=== PATIENT | female | born 1945 | race Caucasian/White ===

== ENCOUNTER 2017-11-02 13:07 | Outpatient (CLI) | payer MEDICARE, BC ==
[2017-11-02 14:09] LABS: Hematocrit 35.9 % (36.0-47.0)
--- NOTE | 2017-11-02 16:22 | ULT ---
THYROID ULTRASOUND: Date: 11-02-17 Comparison: 10-03-16 History: Evaluate thyroid nodule, prior history of right sided thyroidectomy. Technique: Multiplanar grayscale sonographic imaging of the thyroid gland obtained. 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 The left thyroid lobe measures 1.9 x 4.5 x 1.6 cm. There is a hypoechoic solid nodule within the inferior aspect of the left lobe of the thyroid gland m easuring 1.4 x 1.2 x 1.2 cm, grossly unchanged when compared to the 10-03-16 exam. IMPRESSION: 1. Stable solid inferior left thyroid nodule. POS: SYBIL
== END 2017-11-02 13:08 | disposition home or self-care (01) ==
LOC: ULT 13:07
PROVIDERS: ATTEND Specialist
DX: E04.1 Nontoxic single thyroid nodule (principal)
CPT/HCPCS: 76536; 85014; 85018

== ENCOUNTER 2018-05-17 08:05 | Outpatient (CLI) | payer MEDICARE, BC | END 2018-05-17 08:06 | disposition home or self-care (01) | LOC: BICMAMMO 08:05 | PROVIDERS: ATTEND Family Medicine | DX: Z12.31 Encounter for screening mammogram for malignant neoplasm of breast (principal); Z80.3 Family history of malignant neoplasm of breast | CPT/HCPCS: 77063; 77067 ==

== ENCOUNTER 2018-08-25 08:01 | Outpatient (CLI) | payer MEDICARE, BC ==
--- NOTE | 2018-08-25 09:44 | HP ---
DATE OF SERVICE: 08/25/2018. HISTORY OF PRESENT ILLNESS: Ms. Shea Carey is a very pleasant 73-year-old who presents to [facility] for evaluation of multiple ulcerations of the right and left buttocks, which she state s have been present for approximately 10 years. The patient states that she has been seen by two [place] matologists. She also reports that she was last seen at the [facility]. She states that the ulcerations have been treated with steroid preparations which resulted in a n improvement of the itching associated with her wounds. The patient was referred to the Wound Cente r by Dr. Hunter. The patient states that she has been cleansing her wounds with saline Witch Diana in addition to Curad Silver solution. She states that she then dresses her wounds with [employer]care nons tick dressings. The patient has no other complaints today. She denies any fever or chills. PAST MEDICAL HISTORY: Hypothyroidism. PAST SURGICAL HISTORY: Thyroid surgery. MEDICATIONS: 1. Levothyroxine. 2. Iron. 3. Vitamin D. 4. Coenzyme Q10. 5. Aspirin. 6. Fish oil. 7. Tylenol as needed. ALLERGIES: SULFA, LATEX. SOCIAL HISTORY: Negative for tobacco or ETOH use. FAMILY HISTORY: Significant for coronary artery disease. The patient's father and brother were both diagnosed with coronary artery disease. Family history is negative for diabetes mellitus. PHYSICAL EXAMINATION: VITAL SIGNS: Temperature 98.1, pulse 80, respirations 18, blood pressure 133/88. GENERAL: A 73-year-old female lying on table in examination room in prone position in no acute distr ess. HEENT: Normocephalic, atraumatic. NECK: No nuchal rigidity. CHEST: Clear to auscultation. CARDIAC: Regular rate and rhythm. ABDOMEN: Soft. EXTREMITIES: No clubbing or cyanosis. BACK: Superficial ulcerations in a diffuse distribution are present. No purulent drainage is associ ated with the excoriations. No cellulitis of the right or left buttock is appreciated. No maceratio n of the skin of the right or left buttock is present. NEUROLOGIC: Grossly nonfocal. ASSESSMENT AND PLAN: 1. Excoriations of right and left buttocks as described above. The patient has been asked to cleans e the excoriations with Dove soap and water, pat dry and apply Synalar ointment 0.025% to the excoria tions. She is to apply the Synalar ointment up to b.i.d. She has been instructed if she bathes or s howers to apply the Synalar ointment immediately after patting dry for better absorption. The patien t understands and is in agreement with the preceding treatment plan. No antibiotics will be prescrib ed today based upon the appearance of the right and left buttocks. I will see Ms. Carey again in 2 w eeks. 2. Hypothyroidism.
[2018-08-25] MEDS ORDERED: Sodium Chloride 0.9% 15 ML NEB ONE (15:00)
== END 2018-08-25 08:02 | disposition home or self-care (01) ==
LOC: WCC 08:01
PROVIDERS: ATTEND Family Medicine
DX: L98.419 Non-pressure chronic ulcer of buttock with unspecified severity (principal); E03.9 Hypothyroidism, unspecified
CPT/HCPCS: 97139; 97602; G0463; 99203; A4218

== ENCOUNTER 2018-09-09 12:52 | Outpatient (CLI) | payer MEDICARE, BC ==
--- NOTE | 2018-09-09 13:31 | PRG ---
DATE OF SERVICE: 09/09/2018 HISTORY: Ms. Shea Carey is a very pleasant 73-year-old who presents to the Wound Center for evaluation of multiple ulcerations of the right and left buttocks. The patient previously stated guillermina t the wounds have been present for approximately 10 years. The patient stated that she had been seen by 2 dermatologists. She stated that she was last seen at the [facility]. She stated that the ulcerations had been treated with steroid preparations, which resulted i n an improvement of the itching associated with her wounds. The patient was referred to the Wound Ce nter by Dr. Hunter. The patient stated that she had been cleansing her wounds with saline Witch Rhodes zel in addition to Curad Silver solution prior to being seen in the Wound Center. She stated that sh daniel then had been dressing her wounds with Nexcare nonstick dressings. Ms. Carey has no complaints tod ay. She denies any fever or chills. PHYSICAL EXAMINATION: VITAL SIGNS: Temperature 98.0, pulse 91, respirations 19, blood pressure 119/80. BACK: The ulcerations noted at the time of the patient's last visit has markedly improved in their a ppearance. The ulcerations have almost healed completely. ASSESSMENT AND PLAN: 1. Excoriations of right and left buttocks. As stated above, the wounds have almost healed complete ly. Ms. Carey will be discharged from clinic today with followup on a p.r.n. basis. 2. Hypothyroidism.
== END 2018-09-09 12:53 | disposition home or self-care (01) ==
LOC: WCC 12:52
PROVIDERS: ATTEND Family Medicine
DX: S30.810A Abrasion of lower back and pelvis, initial encounter (principal); E03.9 Hypothyroidism, unspecified
CPT/HCPCS: 97602

== ENCOUNTER 2018-12-27 08:06 | Outpatient (CLI) | payer MEDICARE, BC ==
--- NOTE | 2018-12-27 10:18 | ULT ---
THYROID ULTRASOUND: History: Thyroid nodule. Follow up. Technique: Multiple longitudinal and transverse images of the thyroid glands obtained using a multihe rtz linear array transducer. Real-time color flow images obtained. FINDINGS: The right thyroid lobe is surgically absent. The left measures 4.4 x 1.9 x 1.3 cm. Ther is a solid le imani in the lower pole of the left thyroid lobe measuring 1.4 x 1.3 x 1.1 cm. No evidence of thyroid cysts seen. No other left thyroid lesion seen. IMPRESSION: Stable left lower pole thyroid nodule. No other significant abnormalities seen. Sonographic appearanc e is stable. POS: MEENAKSHI
== END 2018-12-27 08:07 | disposition home or self-care (01) ==
LOC: BICULT 08:06
PROVIDERS: ATTEND Specialist
DX: E04.1 Nontoxic single thyroid nodule (principal)
CPT/HCPCS: 76536

== ENCOUNTER 2019-06-08 07:57 | Outpatient (CLI) | payer MEDICARE, BC ==
--- NOTE | 2019-06-08 10:17 | MMO ---
Bilateral MAMMO Bilat Screen [facility]. CLINICAL HISTORY: Patient is 73 years old and is seen for screening. The patient has the following family history of breast cancer: sister, at age 65, malignant (generic). The patient has no personal history of cancer. VIEWS: The views performed were: bilateral craniocaudal with tomosynthesis and bilateral mediolateral oblique with tomosynthesis. FILMS COMPARED: The present examination has been compared to prior imaging studies performed at [facility] on 03/20/2015, 03/25/2016, 03/30/2017 and 05/17/2018. MAMMOGRAM FINDINGS: The breasts are heterogeneously dense, which could obscure a lesion on mammography. Benign calcifications are noted bilaterally. There are no suspicious masses, suspicious calcifications, or new areas of architectural distortion. IMPRESSION: THERE IS NO MAMMOGRAPHIC EVIDENCE OF MALIGNANCY. A ROUTINE FOLLOW-UP MAMMOGRAM IN 1 YEAR IS RECOMMENDED. THE RESULTS OF THIS EXAM WERE SENT TO THE PATIENT. ACR BI-RADS Category 2 - Benign finding MAMMOGRAPHY NOTE: 1. A negative mammogram report should not delay a biopsy if a dominant of clinically suspicious mass is present. 2. Approximately 10% to 15% of breast cancers are not detected by mammography. 3. Adenosis and dense breasts may obscure an underlying neoplasm. Reported by: PEEWEE JACKSON MD Electonically Signed: [id number]
== END 2019-06-08 07:58 | disposition home or self-care (01) ==
LOC: BICMAMMO 07:57
PROVIDERS: ATTEND Family Medicine
DX: Z12.31 Encounter for screening mammogram for malignant neoplasm of breast (principal); Z80.3 Family history of malignant neoplasm of breast
CPT/HCPCS: 77063; 77067

== ENCOUNTER 2020-12-19 07:52 | Outpatient (CLI) | payer MEDICARE, BC ==
--- NOTE | 2020-12-19 08:33 | MMO ---
Bilateral MAMMO Bilat Screen [facility]. CLINICAL HISTORY: Patient is 75 years old and is seen for screening. The patient has the following family history of breast cancer: sister, at age 65, malignant (generic). The patient has no personal history of cancer. VIEWS: The views performed were: bilateral craniocaudal with tomosynthesis and bilateral mediolateral oblique with tomosynthesis. FILMS COMPARED: The present examination has been compared to prior imaging studies performed at [facility] on 03/25/2016, 03/30/2017, 05/17/2018 and 06/08/2019. This study has been interpreted with the assistance of computer-aided detection. MAMMOGRAM FINDINGS: The breasts are heterogeneously dense, which could obscure a lesion on mammography. There are stable benign appearing calcifications seen in both breasts. There are no suspicious masses, suspicious calcifications, or new areas of architectural distortion. IMPRESSION: THERE IS NO MAMMOGRAPHIC EVIDENCE OF MALIGNANCY. A ROUTINE FOLLOW-UP MAMMOGRAM IN 1 YEAR IS RECOMMENDED. THE RESULTS OF THIS EXAM WERE SENT TO THE PATIENT. ACR BI-RADS Category 2 - Benign finding MAMMOGRAPHY NOTE: 1. A negative mammogram report should not delay a biopsy if a dominant of clinically suspicious mass is present. 2. Approximately 10% to 15% of breast cancers are not detected by mammography. 3. Adenosis and dense breasts may obscure an underlying neoplasm. Reported by: NAEL ARAGON MD Electonically Signed: [id number]
== END 2020-12-19 07:53 | disposition home or self-care (01) ==
LOC: BICMAMMO 07:52
PROVIDERS: ATTEND Family Medicine
DX: Z12.31 Encounter for screening mammogram for malignant neoplasm of breast (principal); Z80.3 Family history of malignant neoplasm of breast
CPT/HCPCS: 77063; 77067

== ENCOUNTER 2023-01-05 14:27 | Outpatient (CLI) | payer MEDICARE, BC | END 2023-01-05 14:28 | disposition home or self-care (01) | LOC: BICRAD 14:27 | PROVIDERS: ATTEND Family Medicine | DX: M25.511 Pain in right shoulder (principal) ==

== ENCOUNTER 2024-09-21 08:15 | Outpatient (CLI) | payer MEDICARE | END 2024-09-21 08:16 | disposition home or self-care (01) | LOC: BICMAMMO 08:15 | PROVIDERS: ATTEND Family Medicine | DX: Z78.0 Asymptomatic menopausal state (principal); M85.89 Other specified disorders of bone density and structure, multiple sites | CPT/HCPCS: 77080 ==